=== PATIENT | male | born 1980 | race Caucasian/White ===

== ENCOUNTER 2020-02-18 08:01 | Inpatient (IN) | payer BC ==
[2020-02-18] VITALS (22 sets, daily range): BP systolic 103–142; BP diastolic 48–87
[~2020-02-18] VITALS: Ht 175.3 cm; Wt 95.3 kg
[~2020-02-18 08:01] MED LIST: AMLODIPINE BESY10 MG ORAL; CITALOPRAM HBR10 M1 ORAL; CRESTOR10 M2 ORAL; FLOMAX0.4 MG ORAL; LANTUS SOL100 UNIT/1 SUBQ; LOSARTAN-HCTZ1 EACH ORAL; NOVOLOG100 UNIT/4 SQ; benazepril PO
[2020-02-18] MEDS ORDERED: Midazolam 2mg/2ml Inj ONE (08:36)
[2020-02-18] MEDS ORDERED: fentaNYL 100 mcg/2 mL IV ONE (08:36)
[2020-02-18] MEDS ORDERED: Lidocaine 1% MPF 10mg/ml 5ml ONE (08:47)
[2020-02-18] MEDS ORDERED: Rocuronium Bromide 50mg/5ml Inj IV ONE (08:57)
[2020-02-18] MEDS ORDERED: Succinylcholine 20mg/ml 10ml vial ONE (08:57)
[2020-02-18] MEDS ORDERED: Lidocaine 1% 10mg/ml/Epi 0.005mg/ml 30ml vial INJ ONE (09:18)
[2020-02-18] MEDS ORDERED: Bacitracin 50000 Units Vial ONE (09:19)
[2020-02-18] MEDS ORDERED: NeoSporin Gu Irrig 1ml Amp IRRIG ONE (09:19)
[2020-02-18] MEDS ORDERED: Neostigmine 1mg/ml 10ml Inj ONE (10:00)
[2020-02-18] MEDS ORDERED: NS Irrig 1000ml ONE (10:00)
[2020-02-18] MEDS ORDERED: LR 1000ml ONE (10:00)
[2020-02-18] MEDS ORDERED: Sterile Water Irrig 1000ml IRRIG ONE (10:00)
--- NOTE | 2020-02-18 10:08 | Pre-Procedure Note/Attestation ---
Pre-Procedure Note/Attestation Complete Prior to Procedure Planned Procedure: bilateral Procedure Narrative: Bilateral groin and thigh excision and flap elevation Attestation I attest that I discussed the nature of the procedure; its benefits; risks and complications; and alternatives (and the risks and benefits of such alternatives ), prior to the procedure, with the patient (or the patient's legal passenger representative). I attest that, if there was a reasonable possibility of needing a blood transfusion, the patient (or the patient's legal passenger representative) was given the [facility] standardized written summary, pursuant to the [place] Blood Safety Act ([place] Health and Safety Code # 1645, as amended). I attest that I re-evaluated the patient just prior to the surgery and that there has been no change in the patient's H&P, except as documented below: Ant Rico MD Feb 18, 2020 10:08
[2020-02-18] MEDS ORDERED: Surgicel 4in x 8in TOPIC ONE (10:09)
[2020-02-18] MEDS ORDERED: PCA Education Pamphlet MISC ONE (10:15)
[2020-02-18] MEDS ORDERED: Rate Change PCA 1 Each MISC PRN (10:15)
[2020-02-18] MEDS ORDERED: PCA HYDROmorphone 1mg/ml 30 ML IV PRN (10:15)
[2020-02-18] MEDS ORDERED: DiphenhydrAMINE 50mg/ml Inj IVP PRN (10:15)
[2020-02-18] MEDS ORDERED: Morphine Sulfate 10mg/ml Inj ONE (10:34)
[2020-02-18] MEDS ORDERED: Sodium Chloride 10ml vial INJ ONE (10:35)
[2020-02-18] MEDS ORDERED: LR 1000ml 1,000 ML IVLG SCH (10:43)
--- NOTE | 2020-02-18 10:43 | Anethesia Preoperative Eval ---
Anesthesia Pre-op PMH/ROS General Date of Evaluation: Feb 18, 2020 Time of Evaluation: 09:35 Anesthesiologist: Masha ASA Score: ASA 3 Mallampati Score Class I : Soft palate, uvula, fauces, pillars visible Class II: Soft palate, uvula, fauces visible Class III: Soft palate, base of uvula visible Class IV: Only hard plate visible Mallampati Classification: Class II Surgeon: Trisha Diagnosis: Recurrend HS Surgical Procedure: Excision of groin HS Anesthesia History: none Family History: no anesthesia problems Allergies: Coded Allergies: No Known Allergies (Unverified , 02/15/20) Medications: see eMAR Patient NPO?: Yes Past Medical History Cardiovascular: Reports: HTN - stable; Denies: CAD, MD, valve dz, arrhythmia, other Pulmonary: Denies: asthma, COPD, MATTHEW, other Gastrointestinal/Genitourinary: Reports: GERD; Denies: CRI, ESRD, other Neurologic/Psychiatric: Denies: dementia, CVA, depression/anxiety, TIA, other Endocrine: Reports: DM - Type 1 well controlled; Denies: hypothyroidism, steroids, other HEENT: Denies: cataract (L), cataract (R), glaucoma, MASHPEE (L), MASHPEE (R), other Hematology/Immune: Denies: anemia, DVT, bleeding disorder, other Musculoskeletal/Integumentary: Reports: other - Recurrent HS; Denies: OA, RA, DJD, DDD, edema Other: other - overweight PMH Narrative: as above PSxH Narrative: T&A ankle Sx Anesthesia Pre-op Phys. Exam Physician Exam Last Vital Signs Date Time Temp Pulse Resp B/P (MAP) Pulse Ox O2 Delivery O2 Flow Rate FiO2 02/18/20 09:35 Room Air 02/18/20 09:31 97.5 74 18 142/87 100 Constitutional: NAD Neurologic: CN 2-12 intact Cardiovascular: RRR, no M/R/G Respiratory: CTA Gastrointestinal: S/NT/ND Airway Exam Mallampati Score: Class II MO: full Neck: flexible ROM: full Teeth: intact Dentures: no upper, no lower Anesthesia Pre-op A/P Labs Chemistry Test 02/18/20 09:40 POC Whole Blood Glucose 127 MG/DL (74-106) H Studies Pre-op Studies: EKG - NSR Risk Assessment & Plan Assessment: ASA 3 Plan: GA with ETT Status Change Before Surgery: No Pre-Antibiotics Drug: Ancef 2gr Given Within 1 Hr of Incision: Yes Time Given: 10:28 Fan Flanagan MD Feb 18, 2020 10:43
[2020-02-18] MEDS ORDERED: Meperidine 25mg/0.5ml Inj (FOR RIGORS ONLY) IV PRN (10:45)
[2020-02-18] MEDS ORDERED: Ketorolac 30mg Inj IV PRN (10:45)
[2020-02-18] MEDS ORDERED: Metoclopramide 10mg/2ml Inj IVP PRN (10:45)
[2020-02-18] MEDS ORDERED: Hydromorphone 0.5mg/0.5ml inj IVP PRN (10:45)
[2020-02-18] MEDS ORDERED: Acetaminophen (Non formulary) 100 ML IV ONE (10:45)
[2020-02-18] MEDS ORDERED: Glycopyrrolate 0.2mg/ml 1ml Vial ONE (10:47)
--- NOTE | 2020-02-18 11:55 | Operative Note - PDOC ---
Operative Note Operative Note Procedure: Excision of bilateral groin and thigh hidradenitis with flap elevation and closure of wounds, except for left scrotal wound Post-op Diagnosis: same as pre-op Surgeon: Trisha Inspector And Sorter: Job Specimen: yes Complications: none Condition: stable Estimated Blood Loss: minimal Drains: damir Implant(s) used?: No Ant Rico MD Feb 18, 2020 11:55
--- NOTE | 2020-02-18 12:06 | Immediate Post-Op Evaluation ---
Immediate Post-Op Evalulation Immediate Post-Op Evalulation Procedure: Excision and partial closure of bilateral groin hydradenitis Date of Evaluation: Feb 18, 2020 Time of Evaluation: 12:04 IV Fluids: 1000 Blood Products: none Estimated Blood Loss: 50 Urinary Output: 250 Blood Pressure Systolic: 118 Blood Pressure Diastolic: 62 Pulse Rate: 63 Respiratory Rate: 20 O2 Sat by Pulse Oximetry: 99 Temperature (Fahrenheit): 98.1 Pain Score (1-10): 2 Nausea: No Vomiting: No Complications none Patient Status: reacts, patent, extubated, none Hydration Status: adequate Fan Flanagan MD Feb 18, 2020 12:05
[2020-02-18] MEDS ORDERED: DiphenhydrAMINE 50mg/ml Inj IVP SCH (12:15)
--- NOTE | 2020-02-18 15:30 | Operative Note - Dictated ---
DATE OF OPERATION: 02/18/2020 PREOPERATIVE DIAGNOSIS: Bilateral groin and bilateral upper thigh hidradenitis suppurativa. POSTOPERATIVE DIAGNOSIS: Bilateral groin and bilateral upper thigh hidradenitis suppurativa. PROCEDURES: 1. Excision of left upper thigh hidradenitis suppurativa with wound closure. 2. Excision of right upper thigh hidradenitis suppurativa with wound closure. 3. Excision of right scrotal hidradenitis suppurativa with wound closure. 4. Extended excision of left scrotal and upper thigh hidradenitis stage III resulting in a defect of 10 x 15 cm. 5. Elevation of a scrotal fasciocutaneous flap for staged closure of left scrotal wound that measured 10 x 15 cm. SURGEON: Ant Rico MD. SPECIAL EDUCATION RESOURCE ROOM TEACHER: Toribio Kaiser MD. ANESTHESIA: General. COMPLICATIONS: None. DRAINS: Included a Ovando. SPECIMEN: Included a total of four different specimen containing hidradenitis. DISPOSITION: Stable to the recovery room. INDICATIONS FOR SURGERY: This is a 39-year-old male with a history of diabetes mellitus, with a long-standing history of hidradenitis suppurativa, who has sought and failed medical management in his local home town near [place]. He had presented to me in evaluation several months ago. I noted the extent of his disease and that he needed to have surgical excision and reconstruction of his affected areas. He had multiple areas of disease in the groin and thigh region, the most significant of which was stage III at the junction of the upper thigh and the scrotum on the left side. We discussed the plan for excision and reconstruction. He understood and agreed to proceed. He also understood the risks and benefits of surgery and agreed to proceed. DETAILS OF THE OPERATION: The patient was brought to the operating room and after induction of anesthesia, was placed in the lithotomy position on the operating room table. Once he was fully prepped and draped, a total of 10 mL of lidocaine with epinephrine was injected into the various sites containing the hidradenitis. We first began on the left upper thigh region where there was a 2 x 1 cm focus of HS, which was excised in an elliptical fashion using a #15 blade and was amenable to primary closure. Following the excision of the diseased, wound was irrigated with pulse lavage. It was closed primarily using 2-0 Vicryl and interrupted 3-0 Prolene suture. We then turned our attention to the contralateral right-sided disease. First on the right upper thigh, there was an area that measured approximately 5 x 2 cm in dimension. This was excised in elliptical fashion as was done on the other side. A #15 blade was used to make the skin incision. Dissection was carried down to the fascia and the specimen was removed en bloc. This required some mobilization of skin flaps on either side of the wound to allow for tension-free closure. Once the flaps were elevated, the wound was reapproximating using 2-0 and 3-0 Vicryl sutures and the skin was closed with a running 3-0 Prolene suture that was reinforced with interrupted 3-0 Prolene. Next, we turned our attention to the right scrotal disease. This is an area that measured approximately 4 x 2 cm. Again, a similar ellipse was designed around the area of disease. A #15 blade was then used to make the skin incision and dissection was carried down to the level of the scrotal fascia, and this also required some elevation of the skin flaps on either side to allow for tension-free closure. This was done using skin hooks and electrocautery and the wound was then closed with 2-0 Vicryl sutures in a running 3-0 Prolene suture that was reinforced with interrupted 3-0 Prolene sutures. We then turned our attention to the large area of disease involving the left groin. This was an L-shaped type of distribution of the disease that extended from the upper groin all way down to the scrotal base and in the perianal region. A marking pen was then used to reinforce our previous markings and a #15 blade was then used to make the skin incision to excise this piece en bloc. Toward the base of the scrotum, there was significant adherence of the disease to the scrotal fascia and in the area of the perianal region as well. Upon careful dissection, we were able to tease off the disease from the tunica albuginea, and we noted that we were able to successfully remove all this; however, there was some evidence of disease that measured approximately 1 x 1 cm just adjacent to the perianal region and by the anus, which I felt it was appropriate to leave behind because of the fear of possibly causing any disturbance of the sphincter function to the anus in that region. Therefore that particular area of disease was left behind. A Estev[place] drain, however, was placed through it to allow for any drainage. The eventual plan maybe once this scrotal wound is completely healed, we may have to come back for a small local procedure to remove that specific focus, which was adjacent to the anus. However, given at this operation, I did not feel that it would be safe to proceed with removing the disease and given the small disease burden I felt that it was okay to come back and address at a later dates. However, the bulk of the disease and the upper scrotum and upper thigh region was stage III was excised and once this was done the defect that resulted was 10 x 15 cm and this was not clearly amenable to primary closure. As such, we had to elevate a scrotal fasciocutaneous flap which was elevated off of the tunica albuginea. Skin hooks were used to elevate the skin flap above the tunica albuginea and this fasciocutaneous flap was elevated based off of branches of the pudendal artery perforators. We also required some elevation of the medial thigh flap tissues to allow for tension-free reapproximation of the closure of the skin flaps. We tentatively did close the wound and there was noted to be no tension upon the closure. Given, however, the extent of the disease and at being stage III and evidence of pus which we did encounter, we felt that it was appropriate to leave this wound open for 48 hours, have the patient be on IV antibiotics, and perform local wound care and perform definitive adjacent tissue transfer with flap elevation within 48 hours. The wound was then packed with some Surgicel and wet-to-dry gauze, and bulky dressings were applied. Also, a Castaneda that had been placed at the beginning of the case to allow for better wound management so that the patient would not soil the dressings postoperatively. Ant Rico M.D. DR: REBEKAH JOB#: [id number] CC:
--- NOTE | 2020-02-18 15:50 | NUR ---
NURSE NOTES: Received report from Ramon DYE. pt a/a/o x4 laying in bed with no signs of distress or other issues at this time. Castaneda cath in place draining well. surgical incision c/d/i. IV on the right ?OLGUIN gauge#20 running TRADE CLERK dilaudid and IVF. RN will review orders and will carry on as indicated. I will f/u as needed.
--- NOTE | 2020-02-18 16:38 | History and Physical ---
History of Present Illness General Date patient seen: Feb 18, 2020 Time patient seen: 17:28 Reason for Hospitalization: Post surgical hypoxia, wound drainage Present Illness HPI 39 year old gentleman with a PMH of DM type 1, HTN and Hydradenitis of the inguinal area present after surgery with Dr. Rico. Procedure performed was Excision of bilateral groin and thigh hidradenitis with flap elevation and closure of wounds, except for left scrotal wound. There was minimal blood loss during the surgery. Patient currently has a [place] drain and has persistent sanguinous drainage from the wound site. After the surgery patient remained hypoxic and is now on supplemental oxygen nasal cannula. Has some through pain surgical site but has not used the OUTDOOR STUDIES DIRECTOR pump yet. Currently patient is AAO x3, no chest pain, no cough, no shortness of breath, leg pain, abdominal pain or diarrhea. He only complains of some pain on his lips intubation may have been traumatic. Allergies: Coded Allergies: No Known Allergies (Unverified , 02/15/20) COVID-19 Screening Contact w/high risk pt: No Experienced COVID-19 symptoms?: No Medication History Scheduled Amlodipine Besylate* (Amlodipine Besylate*), 10 MG ORAL DAILY, (Reported) Benazepril Hcl* (Benazepril Hcl*), 40 MG ORAL DAILY, (Reported) Citalopram Hydrobromide* (Citalopram Hbr*), 10 MG ORAL DAILY, (Reported) Insulin Aspart (Novolog), 0 SQ AC, (Reported) Insulin Glargine (Lantus), 36 SUBQ BEDTIME, (Reported) Patient History History Provided By: Patient Healthcare decision maker Resuscitation status Advanced Directive on File Past Medical/Surgical History Past Medical/Surgical History: (1) HTN (hypertension) (2) DM type 1 (diabetes mellitus, type 1) (3) Hidradenitis suppurativa Family History Family History: FH: diabetes mellitus Social History Social History: (1) Current smoker Review of Systems Constitutional: Reports: no symptoms Eye: Reports: no symptoms ENT: Reports: see HPI, mouth pain Respiratory: Reports: shortness of breath Cardiovascular: Reports: no symptoms Gastrointestinal: Reports: no symptoms Genitourinary: Reports: no symptoms Skin: Reports: other - surgical wounds draining Neurological: Reports: no symptoms Endocrine: Reports: no symptoms Hematologic/Lymphatic: Reports: no symptoms Physical Exam General Appearance: no apparent distress, alert, lethargic, alert oriented x3 Lines, tubes and drains: peripheral, other - damir HEENT: normocephalic, atraumatic, PERRL, other - swollen lip Neck: non-tender, normal alignment, supple Respiratory/Chest: chest wall non-tender, lungs clear, no accessory muscle use , respiratory distress, decreased breath sounds Cardiovascular/Chest: normal peripheral pulses, normal rate, regularly irregular, no gallop/murmur, no JVD Abdomen: normal bowel sounds, non tender, soft, no organomegaly, no mass Skin Exam: other - wound drainage Neurologic: care taker II-XII grossly normal, no motor/sensory deficits, alert, oriented x 3, responsive Last 24 Hour Vital Signs Date Time Temp Pulse Resp B/P (MAP) Pulse Ox O2 Delivery O2 Flow Rate FiO2 02/18/20 15:50 98 Room Air 2.0 28 02/18/20 14:40 18 02/18/20 14:40 97.9 02/18/20 14:30 97.9 72 23 106/52 99 Nasal Cannula 3 02/18/20 14:25 15 02/18/20 14:15 58 15 112/50 99 Nasal Cannula 3 02/18/20 14:10 18 02/18/20 14:00 97.9 02/18/20 14:00 63 16 108/48 98 Nasal Cannula 3 02/18/20 13:45 80 15 103/58 98 Nasal Cannula 3 02/18/20 13:30 62 13 111/54 98 Nasal Cannula 3 02/18/20 13:15 78 21 115/56 99 Nasal Cannula 3 02/18/20 13:00 58 13 110/54 100 Nasal Cannula 3 02/18/20 12:49 56 14 111/65 100 Nasal Cannula 3 02/18/20 12:34 57 15 111/56 100 Simple Mask 6 02/18/20 12:30 69 18 114/61 100 Simple Mask 6 02/18/20 12:20 53 12 114/62 100 Simple Mask 6 02/18/20 12:10 58 14 111/63 100 Simple Mask 6 02/18/20 12:05 75 15 117/52 100 Simple Mask 6 02/18/20 12:05 63 20 99 02/18/20 12:00 60 21 118/62 100 Simple Mask 6 02/18/20 11:55 97.5 74 18 142/87 100 Room Air 02/18/20 09:35 Room Air 02/18/20 09:31 97.5 74 18 142/87 100 Room Air Laboratory Tests Test 02/18/20 09:40 POC Whole Blood Glucose 127 MG/DL (74-106) H Microbiology Date/Time Source Procedure Growth Status 02/18/20 08:24 Nasopharynx SARS-CoV-2 RdRp Gene Assay - Final Complete Height (Feet): 5 Height (Inches): 9.00 Weight (Pounds): 210 Medications Current Medications Medications (Trade) Dose Ordered Sig/Marybeth Route PRN Reason Start Time Stop Time Status Last Admin Dose Admin Acetaminophen (Tylenol) 650 mg Q4H PRN ORAL FEVER 02/18/20 10:15 03/19/20 10:14 Diphenhydramine HCl (Benadryl) 12.5 mg Q6H PRN IVP Itching/Pruritis 02/18/20 10:15 03/19/20 10:14 Heparin Sodium (Porcine) (Heparin 5000 units/ml) 5,000 units EVERY 12 HOURS SUBQ 02/18/20 21:00 04/03/20 20:59 Hydromorphone HCl 30 ml @ 0 mls/hr Q24H PRN IV For Pain 02/18/20 10:15 02/20/20 10:14 02/18/20 14:10 Miscellaneous Medication (OUTDOOR STUDIES DIRECTOR Rate Change) 1 ea DAILY PRN MISC rate change 02/18/20 10:15 02/20/20 10:14 Miscellaneous Medication (OUTDOOR STUDIES DIRECTOR shift volume) 1 ea Q12HR@0700,1900 MISC 02/18/20 19:00 02/20/20 18:59 Ondansetron HCl (Zofran) 4 mg Q6H PRN IVP Nausea & Vomiting 02/18/20 10:15 03/19/20 10:14 Temazepam (RestoriL) 7.5 mg DAILYPRN PRN ORAL Insomnia 02/18/20 10:15 02/25/20 10:14 Assessment/Plan Problem List: (1) Postoperative hypoxia ICD Codes: R09.02 - Hypoxemia; Z98.890 - Other specified postprocedural states SNOMED: 260578983, 455011047 (2) Wound drainage ICD Codes: T14.8XXA - Other injury of unspecified body region, initial encounter SNOMED: 65000320, 940871251 (3) Hidradenitis suppurativa ICD Codes: L73.2 - Hidradenitis suppurativa SNOMED: 48764154 (4) DM type 1 (diabetes mellitus, type 1) ICD Codes: E10.9 - Type 1 diabetes mellitus without complications SNOMED: 91488636 (5) HTN (hypertension) ICD Codes: I10 - Essential (primary) hypertension SNOMED: 83679384 Status: stable Assessment/Plan: 39 year old gentleman with a PMH of DM type 1, HTN and Hydradenitis of the inguinal area present after surgery with Dr. Rico. #Hydradenitis of inguinal region s/p surgical intervention 02/17 #Post op Hypoxia #Wound Drainage #Postop pain -Patient level of care -Ancef antibiotics for hidradenitis status post surgical intervention -Supplemental oxygen to keep saturations above 92% -Castaneda care and maintenance -CBC, CMP -Pain control with OUTDOOR STUDIES DIRECTOR pump -Bowel regimen -Heparin subcu 5000 units every 12 hours -Appreciate recommendations from surgeon #Type 1 diabetes -Resistant dose insulin sliding scale -Levemir 36 units at bedtime -Carb consistent diet -Hemoglobin A1c #Hypertension -Continue home hypertensives I spent 75 minutes on this admission with 50% of the time [id number] with the patient. Discussed with surgeon, RN and pharmacy. I spent 11 minutes counseling on smoking cessation. Benja Franco M.D. Feb 18, 2020 16:38
[2020-02-18] MEDS ORDERED: BENAZEPRIL HCL40 MG ORAL (17:08)
[2020-02-18] MEDS ORDERED: Milk of Magnesia 30ml Ud ORAL PRN (17:23)
[2020-02-18] MEDS: NovoLOG Insulin Flexpen SUBQ SCH ×2 (17:36→21:00)
[2020-02-18 17:52] LABS: EOSINOPHILS % (AUTO) 2.5 % (0.0-3.0); HEMATOCRIT 43.1 % (42.0-52.0); HEMOGLOBIN 14.5 G/DL (14.2-18.0); LYMPHOCYTES % (AUTO) 22.8 % (20.0-45.0); MEAN CORPUSCULAR VOLUME 97 FL (80-99); NEUTROPHILS % (AUTO) 64.7 % (45.0-75.0); PLATELET COUNT 207 K/UL (150-450); RED BLOOD COUNT 4.43 M/UL (4.70-6.10); RED CELL DISTRIBUTION WIDTH 12.6 % (11.6-14.8); WHITE BLOOD COUNT 12.5 K/UL (4.8-10.8)
[2020-02-18 18:03] LABS: ALANINE AMINOTRANSFERASE 27 U/L (12-78); ALBUMIN 3.1 G/DL (3.4-5.0); ALBUMIN/GLOBULIN RATIO 0.9 (1.0-2.7); ALKALINE PHOSPHATASE 55 U/L (46-116); ANION GAP 6 mmol/L (5-15); ASPARTATE AMINO TRANSFERASE 29 U/L (15-37); BILIRUBIN,TOTAL 0.8 MG/DL (0.2-1.0); BLOOD UREA NITROGEN 10 mg/dL (7-18); CALCIUM 8.8 MG/DL (8.5-10.1); CARBON DIOXIDE 29 MMOL/L (21-32); CHLORIDE 103 MMOL/L (98-107); CREATININE 0.9 MG/DL (0.55-1.30); POTASSIUM 4.4 MMOL/L (3.5-5.1); SODIUM 138 MMOL/L (136-145)
--- NOTE | 2020-02-18 18:41 | NUR ---
NURSE NOTES: Patient had episode of hypoglycemia. Blood sugar 42, rechecked blood sugar immediately, blood sugar 45. Patient encouraged to eat dinner and provided with orange juice. Patient was asymptomatic, alert and oriented, denied headache or shakiness. Patient tolerated PO intake and orange juice well, rechecked blood sugar and blood sugar was 69, patient provided with another orange juice and patient drank and tolerated well. Dr. Franco was notified (see critical value MD notification), blood sugar rechecked and is now 134. Patient remains asymptomatic and stable.
[2020-02-18] MEDS: PCA shift volume MISC SCH (19:23)
--- NOTE | 2020-02-18 19:25 | NUR ---
NURSE NOTES: RECEIVED PATIENT FROM HARDIK ESTES. PATIENT IS AWAKE, AAOX4, ON NC 3L, NO ACUTE DISTRESS NOTED. I/S AT BEDSIDE, ENCOURAGED USAGE. PIV INTACT AND PATENT. ALDRIDGE IS IN PLACE DRAINING WELL, ALDRIDGE ANCHOR PRESENT. SURGICAL DRESSINGS IN BILATERAL GROINS, INTACT AND DRY. PATIENT IS ON A WARD ASSISTANT, BOLUS DOSE AT 0.2MG Q6MINS. VSS. BED IS LOCKED AND LOW, BED ALARMS ACTIVE, SIDE RAILS UP X2 AND CALL LIGHT IS WITHIN REACH. WILL CONTINUE TO MONITOR.
--- NOTE | 2020-02-18 19:46 | NUR ---
HAND-OFF: Report given to Diana RN, pt in stable condition.
[2020-02-18] MEDS ORDERED: Levemir Flexpen SUBQ SCH (21:00)
[2020-02-18] MEDS ORDERED: Heparin 5000 units/ml inj SUBQ SCH (21:00)
[2020-02-18] MEDS: Heparin 5000 units/ml inj SUBQ SCH (21:35)
[2020-02-18] MEDS: ceFAZolin sod 1 GM in D5W 55 ML IVPB SCH (21:36)
[2020-02-19] VITALS: BP 111/61
[2020-02-19 04:00] VITALS: BP 116/69
[2020-02-19] MEDS: ceFAZolin sod 1 GM in D5W 55 ML IVPB SCH ×3 (05:01→21:20)
[2020-02-19] MEDS: DiphenhydrAMINE 50mg/ml Inj IVP PRN ×2 (05:02→18:37)
[2020-02-19 05:30] LABS: BASOPHILS % (AUTO) 1.1 % (0.0-2.0); EOSINOPHILS % (AUTO) 2.5 % (0.0-3.0); HEMATOCRIT 44.4 % (42.0-52.0); HEMOGLOBIN 14.6 G/DL (14.2-18.0); MEAN CORPUSCULAR VOLUME 99 FL (80-99); MONOCYTES % (AUTO) 9.5 % (1.0-10.0); NEUTROPHILS % (AUTO) 63.8 % (45.0-75.0); PLATELET COUNT 225 K/UL (150-450); RED CELL DISTRIBUTION WIDTH 12.1 % (11.6-14.8); WHITE BLOOD COUNT 11.4 K/UL (4.8-10.8)
[2020-02-19 05:56] LABS: ALANINE AMINOTRANSFERASE 30 U/L (12-78); ALBUMIN/GLOBULIN RATIO 0.8 (1.0-2.7); ALKALINE PHOSPHATASE 56 U/L (46-116); ANION GAP 6 mmol/L (5-15); ASPARTATE AMINO TRANSFERASE 27 U/L (15-37); BILIRUBIN,TOTAL 0.6 MG/DL (0.2-1.0); BLOOD UREA NITROGEN 10 mg/dL (7-18); CALCIUM 8.6 MG/DL (8.5-10.1); CARBON DIOXIDE 29 MMOL/L (21-32); CHLORIDE 103 MMOL/L (98-107); POTASSIUM 3.9 MMOL/L (3.5-5.1); SODIUM 138 MMOL/L (136-145)
--- NOTE | 2020-02-19 06:06 | NUR ---
NURSE NOTES: COLLECTED PATIENT'S HOME MEDICATIONS, WILL SEND DOWN TO PHARMACY. RECEIPT #: [id number]
--- NOTE | 2020-02-19 06:29 | NUR ---
NURSE NOTES: PATIENT MORNING BLOOD SUGAR WAS 31. PROVIDED PATIENT WITH APPLE JUICE. INITIAL RECHECK BLOOD SUGAR WAS 70, THEN 125 FOR THE SECOND RECHECK. PATIENT WAS ASYMPTOMATIC, AAOX4, STABLE. CALLED AND LEFT MESSAGE TO DR. NICKERSON. WILL CONTINUE TO MONITOR CLOSELY.
[2020-02-19] MEDS: NovoLOG Insulin Flexpen SUBQ SCH ×4 (06:30→21:12)
--- NOTE | 2020-02-19 07:20 | NUR ---
NURSE NOTES: WALKING ROUNDS DONE WITH NIGHT RN. PATIENT AWAKE IN BED HAVING BREAKFAST. QUESTIONS ANSWERED, NEEDS MET. SURGICAL SITE ASSESSED; REMAINS C/D/I. ALDRIDGE CATHETER PATENT AND SECURED AND DRAINING VIA GRAVITY.DENIES PAIN. VERIFIED DILAUDID [employer] MAT[employer] INSPECTOR SETTINGS AGAINST MD ORDER. BED IN LOW AND LOCKED POSITION.
[2020-02-19] MEDS: PCA shift volume MISC SCH ×2 (07:29→19:19)
--- NOTE | 2020-02-19 07:36 | NUR ---
HAND-OFF: Report given to HARDIK Gar. Endorsed POC.
[2020-02-19 08:00] VITALS: BP 117/70
--- NOTE | 2020-02-19 08:15 | General Progress Note ---
Progress Note Progress Note Pt seen and examined. POD# 1. Doing well. Pain well controlled. To OR tomorrow for closure of left scrotal wound that was left open due to purulent tissue present at the time of excision. NPO after MN and consent. MD Trisha Wilder Amir MD Feb 19, 2020 08:14
--- NOTE | 2020-02-19 08:27 | NUR ---
NURSE NOTES: Spoke to regarding admitting MD and change admitting MD to Gilberto Pearce. Order noted and carried out.
--- NOTE | 2020-02-19 08:39 | 48 Hour Post Anesthesia Eval ---
Post Anesthesia Evaluation Procedure: Excision and partial closure of bilateral groin hydradenitis Date of Evaluation: Feb 19, 2020 Time of Evaluation: 08:38 Blood Pressure Systolic: 117 0: 70 Pulse Rate: 67 Respiratory Rate: 18 Temperature (Fahrenheit): 98.7 O2 Sat by Pulse Oximetry: 95 Airway: patent Nausea: No Vomiting: No Pain Intensity: 3 Hydration Status: adequate Cardiopulmonary Status: Stable Mental Status/LOC: patient returned to baseline Follow-up Care/Observations: 0 Post-Anesthesia Complications: 0 Follow-up care needed: N/A Rolando Zhang MD Feb 19, 2020 08:39
--- NOTE | 2020-02-19 09:15 | NUR ---
NURSE NOTES: Seen and evaluated by and requested BS checking x1 now and BS 187. Will continue to monitor.
[2020-02-19] MEDS: Heparin 5000 units/ml inj SUBQ SCH ×2 (09:33→21:00)
--- NOTE | 2020-02-19 10:08 | General Progress Note ---
Assessment/Plan Problem List: (1) Postoperative hypoxia ICD Codes: R09.02 - Hypoxemia; Z98.890 - Other specified postprocedural states SNOMED: 000560794, 636944131 (2) Wound drainage ICD Codes: T14.8XXA - Other injury of unspecified body region, initial encounter SNOMED: 69309452, 310830062 (3) Hidradenitis suppurativa ICD Codes: L73.2 - Hidradenitis suppurativa SNOMED: 87476993 (4) DM type 1 (diabetes mellitus, type 1) ICD Codes: E10.9 - Type 1 diabetes mellitus without complications SNOMED: 82621830 (5) HTN (hypertension) ICD Codes: I10 - Essential (primary) hypertension SNOMED: 73475188 Status: stable Assessment/Plan: 39 year old gentleman with a PMH of DM type 1, HTN and Hydradenitis of the inguinal area present after surgery with Dr. Rico. #Hydradenitis of inguinal region s/p surgical intervention 02/17 #Post op Hypoxia -improving #Wound Drainage #Postop pain -inpatient level of care -Ancef antibiotics for hidradenitis status post surgical intervention -Supplemental oxygen to keep saturations above 92% -Castaneda care and maintenance -CBC, CMP reviewd -Pain control with HISTOLOGIST TECHNOLOGIST pump -Bowel regimen -Heparin subcu 5000 units every 12 hours -Appreciate recommendations from surgeon #Type 1 diabetes #Hypoglycemia - resolved -Resistant dose insulin sliding scale -Levemir 36 units at bedtime -Carb consistent diet -Hemoglobin A1c #Hypertension -Continue home hypertensives #Hypomagnesemia -replaced magnesium I spent 36 minutes on this admission with 50% of the time [id number] with the patient. Discussed with surgeon, RN and pharmacy. Subjective Date patient seen: Feb 19, 2020 Time patient seen: 10:04 Constitutional: Reports: no symptoms HEENT: Reports: no symptoms Cardiovascular: Reports: no symptoms Respiratory: Reports: no symptoms Gastrointestinal/Abdominal: Reports: no symptoms Genitourinary: Reports: no symptoms Neurologic/Psychiatric: Reports: no symptoms Endocrine: Reports: no symptoms Hematologic/Lymphatic: Reports: no symptoms Allergies: Coded Allergies: No Known Allergies (Unverified , 02/15/20) Subjective Patient feels good. No pain. Objective Last 24 Hour Vital Signs Date Time Temp Pulse Resp B/P (MAP) Pulse Ox O2 Delivery O2 Flow Rate FiO2 02/19/20 08:39 67 18 95 02/19/20 08:00 67 18 95 02/19/20 08:00 98.7 67 18 117/70 (86) 95 02/19/20 07:28 98 Nasal Cannula 2.0 28 02/19/20 04:00 99.2 73 16 116/69 (85) 96 02/19/20 04:00 73 16 96 02/19/20 00:00 98.6 69 14 111/61 (78) 98 02/19/20 00:00 69 14 98 02/18/20 21:00 58 15 98 02/18/20 21:00 Nasal Cannula 3.0 02/18/20 20:00 97.7 58 15 108/62 (77) 98 02/18/20 19:20 98 Nasal Cannula 2.0 28 02/18/20 17:34 Nasal Cannula 3.0 02/18/20 15:50 98 Nasal Cannula 2.0 28 02/18/20 14:40 18 02/18/20 14:40 97.9 02/18/20 14:30 97.9 72 23 106/52 99 Nasal Cannula 3 02/18/20 14:25 15 02/18/20 14:15 58 15 112/50 99 Nasal Cannula 3 02/18/20 14:10 18 02/18/20 14:00 97.9 02/18/20 14:00 63 16 108/48 98 Nasal Cannula 3 02/18/20 13:45 80 15 103/58 98 Nasal Cannula 3 02/18/20 13:30 62 13 111/54 98 Nasal Cannula 3 02/18/20 13:15 78 21 115/56 99 Nasal Cannula 3 02/18/20 13:00 58 13 110/54 100 Nasal Cannula 3 02/18/20 12:49 56 14 111/65 100 Nasal Cannula 3 02/18/20 12:34 57 15 111/56 100 Simple Mask 6 02/18/20 12:30 69 18 114/61 100 Simple Mask 6 02/18/20 12:20 53 12 114/62 100 Simple Mask 6 02/18/20 12:10 58 14 111/63 100 Simple Mask 6 02/18/20 12:05 75 15 117/52 100 Simple Mask 6 02/18/20 12:05 63 20 99 02/18/20 12:00 60 21 118/62 100 Simple Mask 6 02/18/20 11:55 97.5 74 18 142/87 100 Room Air Intake and Output 02/18/20 02/19/20 19:00 07:00 Intake Total 1500 ml 220 ml Output Total 450 ml Balance 1050 ml 220 ml Intake IV Total 1500 ml 220 ml Output Urine Total 400 ml Estimated Blood Loss 50 ml # Voids 1 Laboratory Tests 02/18/20 17:30: White Blood Count 12.5H, Red Blood Count 4.43L, Hemoglobin 14.5, Hematocrit 43.1 , Mean Corpuscular Volume 97, Mean Corpuscular Hemoglobin 32.7H, Mean Corpuscular Hemoglobin Concent 33.6, Red Cell Distribution Width 12.6, Platelet Count 207, Mean Platelet Volume 8.7, Neutrophils (%) (Auto) 64.7, Lymphocytes (% ) (Auto) 22.8, Monocytes (%) (Auto) 9.0, Eosinophils (%) (Auto) 2.5, Basophils ( %) (Auto) 1.0, Sodium Level 138, Potassium Level 4.4, Chloride Level 103, Carbon Dioxide Level 29, Anion Gap 6, Blood Urea Nitrogen 10, Creatinine 0.9, Estimat Glomerular Filtration Rate > 60, Glucose Level 45L, Calcium Level 8.8, Total Bilirubin 0.8, Aspartate Amino Transf (AST/SGOT) 29, Alanine Aminotransferase (ALT/SGPT) 27, Alkaline Phosphatase 55, Total Protein 6.5, Albumin 3.1L, Globulin 3.4, Albumin/Globulin Ratio 0.9L 02/18/20 17:56: POC Whole Blood Glucose 42L 02/18/20 17:58: POC Whole Blood Glucose [Pending] 02/18/20 18:18: POC Whole Blood Glucose [Pending] 02/18/20 18:38: POC Whole Blood Glucose 134H 02/18/20 20:58: POC Whole Blood Glucose 134H 02/19/20 04:40: White Blood Count 11.4H, Red Blood Count 4.50L, Hemoglobin 14.6, Hematocrit 44.4 , Mean Corpuscular Volume 99, Mean Corpuscular Hemoglobin 32.4H, Mean Corpuscular Hemoglobin Concent 32.8, Red Cell Distribution Width 12.1, Platelet Count 225, Mean Platelet Volume 8.0, Neutrophils (%) (Auto) 63.8, Lymphocytes (% ) (Auto) 23.0, Monocytes (%) (Auto) 9.5, Eosinophils (%) (Auto) 2.5, Basophils ( %) (Auto) 1.1, Sodium Level 138, Potassium Level 3.9, Chloride Level 103, Carbon Dioxide Level 29, Anion Gap 6, Blood Urea Nitrogen 10, Creatinine 1.0, Estimat Glomerular Filtration Rate > 60, Glucose Level 30*L, Hemoglobin A1c 6.1H , Calcium Level 8.6, Magnesium Level 1.7L, Total Bilirubin 0.6, Aspartate Amino Transf (AST/SGOT) 27, Alanine Aminotransferase (ALT/SGPT) 30, Alkaline Phosphatase 56, Total Protein 6.9, Albumin 3.0L, Globulin 3.9, Albumin/Globulin Ratio 0.8L 02/19/20 05:39: POC Whole Blood Glucose 70L 02/19/20 06:20: POC Whole Blood Glucose 125H 02/19/20 09:10: POC Whole Blood Glucose [Pending] Height (Feet): 6 Height (Inches): 1.00 Weight (Pounds): 209 General Appearance: no apparent distress, alert, alert oriented x3 EENT: PERRL/EOMI, normal ENT inspection, TMs normal Neck: non-tender, normal alignment, supple, normal inspection Cardiovascular: normal peripheral pulses, normal rate, regular rhythm, no gallop/murmur, no JVD Respiratory/Chest: chest wall non-tender, lungs clear, normal breath sounds, no respiratory distress, no accessory muscle use Abdomen: non tender, soft, no organomegaly, no mass, hypoactive bowel sounds Genitourinary/Rectal: other - drainage for surgicl wound Edema: no edema noted Arm (L), no edema noted Arm (R), no edema noted Leg (L), no edema noted Leg (R), no edema noted Pedal (L), no edema noted Pedal (R), no edema noted Generalized Neurologic: pump service supervisor II-XII grossly normal, no motor/sensory deficits, alert, oriented x 3, responsive, normal mood/affect Benja Franco M.D. Feb 19, 2020 10:08
[2020-02-19] MEDS ORDERED: Magnesium Oxide 400mg tab ORAL SCH (10:15)
--- NOTE | 2020-02-19 11:11 | NUR ---
NURSE NOTES: PATIENT REMAINS STABLE. AMBULATED PATIENT AROUND NURSING UNIT X1 ASSIST. TOLERATED VERY WELL. GAIT STEADY, DENIES DIZZINESS. CONSENT FOR SURGERY TOMORROW EXPLAINED BY SURGEON AND CONSENT OBTAINED BY RN.
[2020-02-19 12:00] VITALS: BP_SYST 138; BP_DIAS 83; BP_DIAS 87
[2020-02-19 16:00] VITALS: BP 148/82
--- NOTE | 2020-02-19 17:11 | NUR ---
NURSE NOTES: PATIENT REMAINS STABLE. C/O HAVING DIFFICULTY DEFECATING. OFFERED SEVERAL TIMES THROUGHOUT THE SHIFT TO TRY MOM AND/OR DULCOLAX SUPPOSITORY; BUT REFUSED. STATES THEY MAY HAVE AN EXPLOSIVE BM LIKE BEFORE. EXPLAINED WHY ONE OR THE OTHER IS NEEDED DUE TO MACHINE PACKER. PATIENT STATES THEY WILL CONSIDER LATER. PATIENT UOP AND DOWN TO BATHROOM ALL DAY HAVING FALSE ALARMS. A RESULT SOME OF THE SURGICAL BANDAGES TO BILATERAL GROIN FELL OUT. REPLACED WITH 4X4 WITH CLOTH TAPE. TOLERATED WELL. NOTIFIED DR. BRUCE. NO FURTHER ORDERS GIVEN AT THIS TIME. PATIENT INFORMED.
--- NOTE | 2020-02-19 17:36 | NUR ---
CASE MANAGEMENT: REVIEW 39 YEAR OLD MALE DIRECT ADMIT FROM [facility] SI: HIDRADENITIS SUPPURATIVA BILATERAL GROIN AND THIGH EXCISION AND FLAP ELEVATION EXCISION AND PARTIAL CLOSURE OF BILATERAL GROIN HYDRADENITIS T 97.5 HR 74 RR 18 BP 142/87 SAT 100% ROOM AIR WBC 12.5 H/H 14.5/43.1 GLUCOSE 127 IS: VERSED IV X1 FENTANYL IV X1 ACETAMINOPHEN IV X1 PAIN CONTROL WITH CERTIFIED PERSONAL TRAINER PUMP PATIENT ADMITTED TO MED/SURG UNIT 02/18/2020 DCP: PATIENT IS FROM HOME
--- NOTE | 2020-02-19 19:19 | NUR ---
HAND-OFF: Report given to COCO Leiva RN.
--- NOTE | 2020-02-19 19:30 | NUR ---
NURSE NOTES: Received report from HARDIK Gar. Pt A/Ox4 Breathing regular and unlabored. Pt complaining of having a hard time defecating. Offered medication but refused and said he will take stool softeners in the morning. R hand 20g running DISPUTE COORDINATOR as ordered. Bed is low and locked position. Call light within reach. Will continue to monitor.
[2020-02-19 20:00] VITALS: BP 135/70
--- NOTE | 2020-02-19 20:00 | NUR ---
NURSE NOTES: Pt ambulated around nursing unit x1. Tolerated well, and was steady. Dressing is still D/C/I. Castaneda draining to gravity.Bed low and locked position. Call light within reach.
[2020-02-19] MEDS: Levemir Flexpen SUBQ SCH (21:13)
--- NOTE | 2020-02-19 22:15 | NUR ---
NURSE NOTES: Spoke with Dr. Urrutia. Advised to hold heparin due to tomorrow surgery. Also ordered 25 MG Q6 IVP due to patient complaining of a lot of itchiness
[2020-02-20] VITALS (21 sets, daily range): BP systolic 112–139; BP diastolic 68–85
[2020-02-20] MEDS: ceFAZolin sod 1 GM in D5W 55 ML IVPB SCH ×3 (05:02→20:57)
[2020-02-20] MEDS: DiphenhydrAMINE 50mg/ml Inj IVP PRN ×2 (05:02→21:21)
--- NOTE | 2020-02-20 05:51 | NUR ---
NURSE NOTES: Pt experienced hypoglycemia, Blood sugar was 60, rechecked again and was 58. Pt is alert however pt is NPO, gave D50 (1 Syringe). Rechecked in 15 min was 171. MD notified and advised to hold off insulin. NO IVF ordered.
[2020-02-20] MEDS: NovoLOG Insulin Flexpen SUBQ SCH ×4 (06:30→20:58)
[2020-02-20 06:33] LABS: BASOPHILS % (AUTO) 0.9 % (0.0-2.0); EOSINOPHILS % (AUTO) 2.9 % (0.0-3.0); HEMATOCRIT 44.2 % (42.0-52.0); HEMOGLOBIN 14.5 G/DL (14.2-18.0); LYMPHOCYTES % (AUTO) 16.5 % (20.0-45.0); MEAN CORPUSCULAR VOLUME 98 FL (80-99); MONOCYTES % (AUTO) 10.6 % (1.0-10.0); NEUTROPHILS % (AUTO) 69.2 % (45.0-75.0); PLATELET COUNT 190 K/UL (150-450); RED CELL DISTRIBUTION WIDTH 11.8 % (11.6-14.8); WHITE BLOOD COUNT 8.5 K/UL (4.8-10.8)
[2020-02-20 06:49] LABS: ANION GAP 3 mmol/L (5-15); BLOOD UREA NITROGEN 6 mg/dL (7-18); CALCIUM 8.7 MG/DL (8.5-10.1); CARBON DIOXIDE 34 MMOL/L (21-32); CHLORIDE 100 MMOL/L (98-107); POTASSIUM 4.1 MMOL/L (3.5-5.1); SODIUM 137 MMOL/L (136-145)
--- NOTE | 2020-02-20 07:10 | NUR ---
NURSE NOTES: WALKING ROUNDS DONE WITH NIGHT RN. PATIENT ASLEEP BUT AROUSABLE TO NAME. NPO FOR SURGERY TODAY.CHECKED FRAMING MANAGER SETTINGS AGAINST MD ORDER. PATIENT STATES TO HAVE DISCOMFORT. ASSESSED BILATERAL GROIN AREAS; DRSG REINFORCED BY NIGHT RN DUE TO DRAINAGE EXPECTED PER DR. BRUCE. ALDRIDGE CATHETER PATENT AND SECURED TO RIGHT THIGH. DRCITLALLIING W/O DIFFICULTY. BED IN LOW AND LOCKED POSITION WITH BED ALARM ON. PATIENT INSTRUCTED TO CALL FOR ASSISTANCE TO ANF FROM BATHROOM. ACKNOWLEDGED AND RETURN DEMONSTRATION SUCCESSFUL.
[2020-02-20] MEDS: PCA shift volume MISC SCH ×2 (07:12→19:10)
--- NOTE | 2020-02-20 07:18 | NUR ---
HAND-OFF: Report given to HARDIK Gar. Pt is stable.
[2020-02-20] MEDS: Heparin 5000 units/ml inj SUBQ SCH ×2 (09:00→21:00)
[2020-02-20] MEDS ORDERED: Rocuronium Bromide 50mg/5ml Inj IV ONE (09:21)
[2020-02-20] MEDS ORDERED: Lidocaine 1% MPF 10mg/ml 5ml ONE (09:29)
[2020-02-20] MEDS ORDERED: fentaNYL 100 mcg/2 mL IV ONE (09:33)
[2020-02-20] MEDS ORDERED: Midazolam 2mg/2ml Inj ONE (09:33)
[2020-02-20] MEDS ORDERED: Meperidine 25mg/0.5ml Inj (FOR RIGORS ONLY) IV PRN (09:45)
[2020-02-20] MEDS ORDERED: Acetaminophen (Non formulary) 100 ML IV SCH (09:45)
[2020-02-20] MEDS ORDERED: LR 1000ml 1,000 ML IVLG SCH (09:45)
[2020-02-20] MEDS ORDERED: DiphenhydrAMINE 50mg/ml Inj IVP PRN (09:45)
[2020-02-20] MEDS ORDERED: Ketorolac 30mg Inj IV PRN (09:45)
[2020-02-20] MEDS ORDERED: Hydromorphone 0.5mg/0.5ml inj IVP PRN (09:45)
[2020-02-20] MEDS ORDERED: Metoclopramide 10mg/2ml Inj IVP PRN ×2 (09:45→10:30)
--- NOTE | 2020-02-20 09:45 | Anethesia Preoperative Eval ---
Anesthesia Pre-op PMH/ROS General Date of Evaluation: Feb 20, 2020 Time of Evaluation: 09:41 Anesthesiologist: Oziel ASA Score: ASA 3 Mallampati Score Class I : Soft palate, uvula, fauces, pillars visible Class II: Soft palate, uvula, fauces visible Class III: Soft palate, base of uvula visible Class IV: Only hard plate visible Mallampati Classification: Class II Surgeon: Trisha Diagnosis: Recurrent HS Surgical Procedure: Groin wound closure Anesthesia History: none Family History: no anesthesia problems Allergies: Coded Allergies: No Known Allergies (Unverified , 02/15/20) Medications: see eMAR Patient NPO?: Yes Past Medical History Cardiovascular: Reports: HTN; Denies: CAD, NV, valve dz, arrhythmia, other Pulmonary: Denies: asthma, COPD, MATTHEW, other Gastrointestinal/Genitourinary: Reports: GERD; Denies: CRI, ESRD, other Neurologic/Psychiatric: Denies: dementia, CVA, depression/anxiety, TIA, other Endocrine: Reports: DM - type 1; Denies: hypothyroidism, steroids, other HEENT: Denies: cataract (L), cataract (R), glaucoma, CHILKOOT (L), CHILKOOT (R), other Hematology/Immune: Denies: anemia, DVT, bleeding disorder, other Musculoskeletal/Integumentary: Reports: other - Recurrent HS; Denies: OA, RA, DJD, DDD, edema Other: other - overweight PMH Narrative: as above PSxH Narrative: see H&P Anesthesia Pre-op Phys. Exam Physician Exam Last Vital Signs Date Time Temp Pulse Resp B/P (MAP) Pulse Ox O2 Delivery O2 Flow Rate FiO2 02/20/20 08:00 98.8 63 20 139/84 (102) 95 02/19/20 21:00 Room Air 02/19/20 18:57 21 02/19/20 07:28 2.0 Constitutional: NAD Neurologic: CN 2-12 intact Cardiovascular: RRR, no M/R/G Respiratory: CTA Gastrointestinal: S/NT/ND Airway Exam Mallampati Score: Class II MO: full Neck: flexible ROM: full Teeth: intact Dentures: no upper, no lower Anesthesia Pre-op A/P Labs Hematology Test 02/20/20 05:25 White Blood Count 8.5 K/UL (4.8-10.8) Red Blood Count 4.50 M/UL (4.70-6.10) L Hemoglobin 14.5 G/DL (14.2-18.0) Hematocrit 44.2 % (42.0-52.0) Mean Corpuscular Volume 98 FL (80-99) Mean Corpuscular Hemoglobin 32.3 PG (27.0-31.0) H Mean Corpuscular Hemoglobin Concent 32.8 G/DL (32.0-36.0) Red Cell Distribution Width 11.8 % (11.6-14.8) Platelet Count 190 K/UL (150-450) Mean Platelet Volume 8.2 FL (6.5-10.1) Neutrophils (%) (Auto) 69.2 % (45.0-75.0) Lymphocytes (%) (Auto) 16.5 % (20.0-45.0) L Monocytes (%) (Auto) 10.6 % (1.0-10.0) H Eosinophils (%) (Auto) 2.9 % (0.0-3.0) Basophils (%) (Auto) 0.9 % (0.0-2.0) Chemistry Test 02/19/20 11:25 02/19/20 16:58 02/19/20 21:05 02/20/20 05:09 POC Whole Blood Glucose 174 MG/DL (74-106) H 145 MG/DL (74-106) H Pending 60 MG/DL (74-106) L Test 02/20/20 05:11 02/20/20 05:25 02/20/20 05:41 POC Whole Blood Glucose Pending 171 MG/DL (74-106) H Sodium Level 137 MMOL/L (136-145) Potassium Level 4.1 MMOL/L (3.5-5.1) Chloride Level 100 MMOL/L (98-107) Carbon Dioxide Level 34 MMOL/L (21-32) H Anion Gap 3 mmol/L (5-15) L Blood Urea Nitrogen 6 mg/dL (7-18) L Creatinine 1.0 MG/DL (0.55-1.30) Estimat Glomerular Filtration Rate > 60 mL/min (>60) Glucose Level 181 MG/DL (74-106) #H Calcium Level 8.7 MG/DL (8.5-10.1) Risk Assessment & Plan Assessment: ASA 3 Plan: GA with ETT Status Change Before Surgery: No Pre-Antibiotics Drug: Ancef 1gr Given Within 1 Hr of Incision: Yes Time Given: 10:20 Fan Flanagan MD Feb 20, 2020 09:45
--- NOTE | 2020-02-20 09:49 | NUR ---
NURSE NOTES: Patient off unit for surgery in stable condition.
[2020-02-20] MEDS ORDERED: Bacitracin 50000 Units Vial ONE (10:06)
[2020-02-20] MEDS ORDERED: NeoSporin Gu Irrig 1ml Amp IRRIG ONE (10:06)
[2020-02-20] MEDS ORDERED: Lidocaine 1% 10mg/ml/Epi 0.005mg/ml 30ml vial INJ ONE (10:06)
--- NOTE | 2020-02-20 10:27 | Pre-Procedure Note/Attestation ---
Pre-Procedure Note/Attestation Complete Prior to Procedure Planned Procedure: left Procedure Narrative: Left groin wound flap closure Attestation I attest that I discussed the nature of the procedure; its benefits; risks and complications; and alternatives (and the risks and benefits of such alternatives ), prior to the procedure, with the patient (or the patient's legal office machines sales representative). I attest that, if there was a reasonable possibility of needing a blood transfusion, the patient (or the patient's legal office machines sales representative) was given the [facility] standardized written summary, pursuant to the [place] Blood Safety Act ([place] Health and Safety Code # 1645, as amended). I attest that I re-evaluated the patient just prior to the surgery and that there has been no change in the patient's H&P, except as documented below: Ant Rico MD Feb 20, 2020 10:27
[2020-02-20] MEDS ORDERED: Surgicel 4in x 8in TOPIC ONE (10:40)
[2020-02-20] MEDS ORDERED: Morphine Sulfate 10mg/ml Inj ONE (10:56)
[2020-02-20] MEDS ORDERED: Sodium Chloride 10ml vial INJ ONE (10:57)
--- NOTE | 2020-02-20 11:04 | General Progress Note ---
Assessment/Plan Problem List: (1) Postoperative hypoxia ICD Codes: R09.02 - Hypoxemia; Z98.890 - Other specified postprocedural states SNOMED: 906025903, 685281070 (2) Wound drainage ICD Codes: T14.8XXA - Other injury of unspecified body region, initial encounter SNOMED: 87336433, 649029970 (3) Hidradenitis suppurativa ICD Codes: L73.2 - Hidradenitis suppurativa SNOMED: 59572658 (4) DM type 1 (diabetes mellitus, type 1) ICD Codes: E10.9 - Type 1 diabetes mellitus without complications SNOMED: 93706910 (5) HTN (hypertension) ICD Codes: I10 - Essential (primary) hypertension SNOMED: 26024659 Status: stable Assessment/Plan: 39 year old gentleman with a PMH of DM type 1, HTN and Hydradenitis of the inguinal area present after surgery with Dr. Rico. #Hydradenitis of inguinal region s/p surgical intervention 02/17 #Post op Hypoxia -improving #Wound Drainage - improving #Postop pain -Inpatient level of care -Ancef antibiotics for hidradenitis status post surgical intervention -Supplemental oxygen to keep saturations above 92% -Castaneda care and maintenance -CBC, CMP reviewed -Pain control with DEER FARMER pump -Bowel regimen -Heparin subcu 5000 units every 12 hours -Appreciate recommendations from surgeon -Wound closure today #Type 1 diabetes #Hypoglycemia - resolved -Resistant dose insulin sliding scale -Levemir 36 units at bedtime -Carb consistent diet -Hemoglobin A1c #Hypertension -Continue home hypertensives #Hypomagnesemia -replaced magnesium I spent 36 minutes on this admission with 50% of the time [id number] with the patient. Discussed with surgeon, RN and pharmacy. Subjective Date patient seen: Feb 20, 2020 Time patient seen: 11:01 Constitutional: Reports: no symptoms HEENT: Reports: no symptoms Cardiovascular: Reports: no symptoms Respiratory: Reports: no symptoms Gastrointestinal/Abdominal: Reports: no symptoms Genitourinary: Reports: no symptoms Neurologic/Psychiatric: Reports: no symptoms Endocrine: Reports: no symptoms Hematologic/Lymphatic: Reports: no symptoms Allergies: Coded Allergies: No Known Allergies (Unverified , 02/15/20) Subjective Patient feels good. No pain. No BM yet Objective Last 24 Hour Vital Signs Date Time Temp Pulse Resp B/P (MAP) Pulse Ox O2 Delivery O2 Flow Rate FiO2 02/20/20 09:00 Room Air 02/20/20 08:00 98.8 63 20 139/84 (102) 95 02/20/20 08:00 67 20 95 02/20/20 04:00 98.1 65 18 126/68 (87) 97 02/20/20 04:00 65 18 97 02/20/20 00:00 98.5 62 18 127/78 (94) 96 02/20/20 00:00 62 18 97 02/19/20 21:00 Room Air 02/19/20 20:00 98.9 69 18 135/70 (91) 95 02/19/20 20:00 69 18 95 02/19/20 18:57 97 Room Air 21 02/19/20 16:00 59 18 96 02/19/20 16:00 97.9 59 18 148/82 (104) 96 02/19/20 12:00 63 20 96 02/19/20 12:00 98.1 63 20 138/87 (104) 96 Intake and Output 02/19/20 02/20/20 19:00 07:00 Intake Total 3400 ml 255 ml Output Total 4800 ml 4000 ml Balance -1400 ml -3745 ml Intake Oral 3400 ml 200 ml IV Total 55 ml Output Urine Total 4800 ml 4000 ml Laboratory Tests 02/19/20 11:25: POC Whole Blood Glucose 174H 02/19/20 16:58: POC Whole Blood Glucose 145H 02/19/20 21:05: POC Whole Blood Glucose [Pending] 02/20/20 05:09: POC Whole Blood Glucose 60L 02/20/20 05:11: POC Whole Blood Glucose [Pending] 02/20/20 05:25: White Blood Count 8.5, Red Blood Count 4.50L, Hemoglobin 14.5, Hematocrit 44.2, Mean Corpuscular Volume 98, Mean Corpuscular Hemoglobin 32.3H, Mean Corpuscular Hemoglobin Concent 32.8, Red Cell Distribution Width 11.8, Platelet Count 190, Mean Platelet Volume 8.2, Neutrophils (%) (Auto) 69.2, Lymphocytes (%) (Auto) 16.5L, Monocytes (%) (Auto) 10.6H, Eosinophils (%) (Auto) 2.9, Basophils (%) ( Auto) 0.9, Sodium Level 137, Potassium Level 4.1, Chloride Level 100, Carbon Dioxide Level 34H, Anion Gap 3L, Blood Urea Nitrogen 6L, Creatinine 1.0, Estimat Glomerular Filtration Rate > 60, Glucose Level 181#H, Calcium Level 8.7 02/20/20 05:41: POC Whole Blood Glucose 171H Height (Feet): 5 Height (Inches): 9.00 Weight (Pounds): 210 General Appearance: no apparent distress, alert EENT: PERRL/EOMI, normal ENT inspection, TMs normal Neck: non-tender, normal alignment Cardiovascular: normal peripheral pulses, normal rate, regular rhythm, no gallop/murmur, no JVD Respiratory/Chest: chest wall non-tender, lungs clear, normal breath sounds, no respiratory distress, no accessory muscle use Abdomen: normal bowel sounds, non tender, soft, no organomegaly, no mass Genitourinary/Rectal: other - wounds draining Extremities: normal range of motion, non-tender Edema: no edema noted Arm (L), no edema noted Arm (R), no edema noted Leg (L), no edema noted Leg (R), no edema noted Pedal (L), no edema noted Pedal (R), no edema noted Generalized Neurologic: firer helper II-XII grossly normal, no motor/sensory deficits, alert, oriented x 3, responsive, normal mood/affect Skin: normal pigmentation, warm/dry, other - open surgical wound with drain. Benja Franco M.D. Feb 20, 2020 11:04
[2020-02-20] MEDS ORDERED: Neostigmine 1mg/ml 10ml Inj ONE (11:19)
[2020-02-20] MEDS ORDERED: Glycopyrrolate 0.2mg/ml 1ml Vial ONE (11:19)
[2020-02-20] MEDS ORDERED: Ketorolac 30mg Inj ONE (11:19)
--- NOTE | 2020-02-20 11:38 | Operative Note - PDOC ---
Operative Note Operative Note Procedure: Adjacent tissue transfer closure of groin wound left side Post-op Diagnosis: same as pre-op Surgeon: Trisha Screen Tacker: Job Anesthesia: general Specimen: yes Complications: none Condition: stable Estimated Blood Loss: minimal Drains: DAVID Implant(s) used?: No Ant Rico MD Feb 20, 2020 11:38
--- NOTE | 2020-02-20 12:02 | Immediate Post-Op Evaluation ---
Immediate Post-Op Evalulation Immediate Post-Op Evalulation Procedure: Revision and closure of groin wounds Date of Evaluation: Feb 20, 2020 Time of Evaluation: 12:01 IV Fluids: 600 Blood Products: none Estimated Blood Loss: 50 Urinary Output: 300 Blood Pressure Systolic: 116 Blood Pressure Diastolic: 58 Pulse Rate: 62 Respiratory Rate: 20 O2 Sat by Pulse Oximetry: 99 Temperature (Fahrenheit): 97.8 Pain Score (1-10): 1 Nausea: No Vomiting: No Complications none Patient Status: reacts, patent, extubated, none Hydration Status: adequate Fan Flanagan MD Feb 20, 2020 12:02
[2020-02-20] MEDS ORDERED: PCA HYDROmorphone 1mg/ml 30 ML IV PRN (12:30)
[2020-02-20] MEDS ORDERED: PCA Education Pamphlet MISC ONE (12:30)
[2020-02-20] MEDS ORDERED: Rate Change PCA 1 Each MISC PRN (12:30)
--- NOTE | 2020-02-20 13:15 | NUR ---
NURSE NOTES: PATIENT RETURNED FROM SURGERY IN BED. AOX4. O2 ON WITH ET CO2 IN PLACE AND ATTACHED. RR EVENLY SPACED. NO RESPIRATORY DISTRESS NOTED.BILATERAL GROIN AND SCROTAL SURGICAL SITE C/D/I WITH DAVID DRAIN AND ALDRIDGE CATHETER PATENT AND SECURED. DENIES PAIN. DILAUDID BLOWER FEEDER DYED RAW STOCK SETTINGS VERIFIED AGAINST MD ORDER. BUTTON IN PATIENT'S HAND. RETURN DEMONSTRATION SUCCESSFUL. SCDS ON. BEDSIDE REPORT RECEIVED. BED IN LOW AND LOCKED POSITION WITH BED ALARM ACTIVATED.
--- NOTE | 2020-02-20 14:17 | NUR ---
NURSE NOTES: PATIENT REMAINS STABLE AFTER SURGERY TODAY. ENCOURAGING C/D/B. ABLE TO PERFORM TASK W/O/ DIFFICULTY. RR EVENLY SPACED. SKIN W/D. NO RESPIRATORY DISTRESS NOTED. TOLERATING PO WELL. PAIN CONTROLLED WITH DILAUDID PCS. VSS.AFEBRILE. BED IN LOW AND LOCKED POSITION. BED ALARM ON. CALL LIGHT WITHIN REACH.
--- NOTE | 2020-02-20 15:34 | NUR ---
CASE MANAGEMENT:REVIEW 02/20/2020 SI:POST OPERATIVE HYPOXIA S/P EXCISION OF L&R THIGH AND SCROTAL HIDRADENITIS W/ WOUND CLOSURE; EXCISION OF LEFT SCROTAL FASCIOCUTANEOUS FLAP FOR STAGED CLOSURE RAZ DRAIN IN PLACE BILATERAL GROIN / BILATERAL UPPER THIGH AND SCROTAL HIDRADENITIS SUPPURATIVA 98.1 56 16 133/85 99% 3L NC IS:IN SURGERY FOR REVISION AND CLOSURE OF GROIN WOUND IV ANCEF TID IV D5 PROTOCOL ENGINEERING LEADER DILAUDID LEVEMIR SQ QHS \: 3E MED SURG UNIT DCP: HOME WHEN STABLE PLAN: CONT IV ABX CONTROL PAIN PLACE ON O2 D/T POST OPERATIVE HYPOXIA
--- NOTE | 2020-02-20 15:50 | NUR ---
*-* INSURANCE *-* UPDATED CLINICALS AND REVIEWS HAVE BEEN FAXED TO: RENAY DOMINGUEZ [facility] REF# [id number] FAX: [phone]
--- NOTE | 2020-02-20 16:30 | Operative Note - Dictated ---
DATE OF OPERATION: 02/20/2020 PREOPERATIVE DIAGNOSIS: Open left scrotal wound, status post excision of stage III hidradenitis suppurativa with a 10 x 15 cm defect. POSTOPERATIVE DIAGNOSIS: Open left scrotal wound, status post excision of stage III hidradenitis suppurativa with a 10 x 15 cm defect. PROCEDURE: 1. Adjacent tissue transfer closure of left scrotal and groin wound measuring 10 x 15 cm. CPT code 68847 for the first 30 square cm. 2. Adjacent tissue transfer closure of left scrotal groin wound measuring 10 x 15 cm. CPT code 08488 for the subsequent square centimeters that remained. SURGEON: Ant Rico MD. SUPERVISOR LATHING: Toribio Kaiser MD. ANESTHESIA: General. COMPLICATIONS: None. DRAINS: Included a size 15 DAVID drain. DISPOSITION: Stable to the recovery room. INDICATIONS FOR SURGERY: This is a 39-year-old male with a history of diabetes mellitus and longstanding history of hidradenitis suppurativa who is now postoperative day #2 from radical excision of disease involving his perineum and groin regions. His smaller wounds were closed at the initial operation. However, the scrotal wound was left open given the degree of infection present and the wound that resulted from the initial excision was 10 x 15 cm. At the initial operation, we elevated a scrotal fasciocutaneous flap as well as the medial thigh flap for staged closure of the wound and today after being on IV antibiotics for 48 hours and getting wound care, he is to undergo a definitive adjacent tissue transfer closure of the scrotal wound. DETAILS OF THE OPERATION: The patient was brought to the operating room and laid supine on the operating table. After induction of anesthesia, he was placed in lithotomy. The perineum was prepped and draped in a sterile and usual fashion. Once again, the scrotal wound measured 10 x 15 cm. The scrotal flap that had been previously elevated was further mobilized by releasing the fascial attachments to the tunic albuginea. Again this flap was based off of perforators of the pudendal artery. With the flap further mobilized over the scrotal fascia, we also released some of the medial thigh flap tissue as well to allow for adjacent tissue transfer closure of this 150 square centimeter wound. With the flaps fully mobilized, a DAVID drain was then placed into the wound bed. Surgicel was placed on top and following hemostasis and irrigation, the wound was closed with the opposition of the medial thigh flap and the scrotal flap with use of 0 Vicryl sutures and 2-0 Vicryl to close the deep layers of the flaps and a running 3-0 Prolene suture was used to close the skin that was further reinforced with multiple interrupted 2-0 Prolene sutures. All needle and sponge counts were correct at the end of the case. Ant Rico M.D. DR: CORY JOB#: [id number] CC:
[2020-02-20] MEDS: Docusate 100mg cap ORAL SCH (17:47)
--- NOTE | 2020-02-20 18:02 | NUR ---
NURSE NOTES: PATIENT GOT OOB WITH HOT SEALING MACHINE OPERATOR WITHOUT ADVISING RN. PATIENT AMBULATING IN HALLWAY. GAIT STEADY. EXPLAINED TO PATIENT AND HOT SEALING MACHINE OPERATOR. PLEASE CHECK WITH RN BEFORE GETTING SURGICAL PATIENT'S OOB. PLACED PATIENT IN BED. CHECKED ALL SURGICAL SITES; THUS FAR C/D/I. BED ALARM ACTIVATED. BED IN LOW,LOCKED POSITION WITH CALL LIGHT AND NARCOTICS DETECTIVE BUTTON IN HAND. VSS. AFEBRILE. DOING WELL. NO RESPIRATORY DISTRESS NOTED. PLACED CALL TO DR. BRUCE OF PREVIOUS EVENTS DESCRIBED. NO INTERVENTIONS AT THIS TIME.
--- NOTE | 2020-02-20 19:20 | NUR ---
NURSE NOTES: Received report from HARDIK Last. Pt is awake, lying semi-miranda's; comfortably resting. No signs of acute distress noted. Pt reports 3/10 pain in the lower back. AOx4; able to make needs known. Checked IV site, lines, and rates; patent and running. No erythema, bleeding, or infiltration noted. Groin dressing noted; dry and intact. DAVID drain under scrotum noted; patent and draining well. Castaneda bag noted; anchored, patent and draining well. Pt oriented to room. Bed at lowest position. Brakes on. Siderails up x3. Bed alarm on. Call light within reach. Will continue to monitor.
--- NOTE | 2020-02-20 19:26 | NUR ---
HAND-OFF: Report given to HERMAN JOVEL RN.
[2020-02-20] MEDS: Levemir Flexpen SUBQ SCH (20:59)
[2020-02-21] VITALS: BP 136/80
[2020-02-21 04:00] VITALS: BP 138/96
[2020-02-21] MEDS: ceFAZolin sod 1 GM in D5W 55 ML IVPB SCH ×3 (05:46→21:42)
[2020-02-21] MEDS: NovoLOG Insulin Flexpen SUBQ SCH ×4 (05:59→20:49)
[2020-02-21 06:18] LABS: BASOPHILS % (AUTO) 0.6 % (0.0-2.0); EOSINOPHILS % (AUTO) 1.4 % (0.0-3.0); HEMATOCRIT 45.2 % (42.0-52.0); LYMPHOCYTES % (AUTO) 10.3 % (20.0-45.0); MEAN CORPUSCULAR VOLUME 97 FL (80-99); MONOCYTES % (AUTO) 9.1 % (1.0-10.0); NEUTROPHILS % (AUTO) 78.6 % (45.0-75.0); PLATELET COUNT 211 K/UL (150-450); RED BLOOD COUNT 4.67 M/UL (4.70-6.10); RED CELL DISTRIBUTION WIDTH 11.6 % (11.6-14.8); WHITE BLOOD COUNT 10.9 K/UL (4.8-10.8)
[2020-02-21 06:41] LABS: ALANINE AMINOTRANSFERASE 22 U/L (12-78); ALBUMIN 3.1 G/DL (3.4-5.0); ALBUMIN/GLOBULIN RATIO 0.7 (1.0-2.7); ALKALINE PHOSPHATASE 70 U/L (46-116); ANION GAP 4 mmol/L (5-15); ASPARTATE AMINO TRANSFERASE 21 U/L (15-37); BILIRUBIN,TOTAL 0.5 MG/DL (0.2-1.0); BLOOD UREA NITROGEN 9 mg/dL (7-18); CALCIUM 9.4 MG/DL (8.5-10.1); CARBON DIOXIDE 32 MMOL/L (21-32); CHLORIDE 97 MMOL/L (98-107); POTASSIUM 4.4 MMOL/L (3.5-5.1); SODIUM 133 MMOL/L (136-145)
[2020-02-21] MEDS: PCA shift volume MISC SCH ×2 (07:09→19:00)
--- NOTE | 2020-02-21 07:21 | NUR ---
HAND-OFF: Report given to HARDIK Lino. Pt is sleeping and in stable condition. Plan of care endorsed.
--- NOTE | 2020-02-21 07:25 | NUR ---
NURSE NOTES: Handoff received from Breanna DYE. Patient is awake and alert, no signs of distress noted. No complaints of pain at this time. Right wrist IV is patent and asymptomatic. Groin DAVID drain noted. NAILHEAD PUNCHER settings verified against order. Bed is low and locked, side rails up x2, call light is within reach.
[2020-02-21 08:00] VITALS: BP 133/82
[2020-02-21] MEDS: Docusate 100mg cap ORAL SCH ×2 (08:19→18:35)
[2020-02-21] MEDS: Heparin 5000 units/ml inj SUBQ SCH ×2 (08:47→20:49)
[2020-02-21] MEDS ORDERED: HYDROcodone/Acetamin 5/325 tab ORAL PRN (10:34)
--- NOTE | 2020-02-21 10:42 | General Progress Note ---
Assessment/Plan Problem List: (1) Postoperative hypoxia ICD Codes: R09.02 - Hypoxemia; Z98.890 - Other specified postprocedural states SNOMED: 652162986, 941591426 (2) Wound drainage ICD Codes: T14.8XXA - Other injury of unspecified body region, initial encounter SNOMED: 63758483, 123312036 (3) Hidradenitis suppurativa ICD Codes: L73.2 - Hidradenitis suppurativa SNOMED: 40034083 (4) DM type 1 (diabetes mellitus, type 1) ICD Codes: E10.9 - Type 1 diabetes mellitus without complications SNOMED: 40850844 (5) HTN (hypertension) ICD Codes: I10 - Essential (primary) hypertension SNOMED: 83641326 (6) Hyponatremia ICD Codes: E87.1 - Hypo-osmolality and hyponatremia SNOMED: 35671197 Status: stable Assessment/Plan: 39 year old gentleman with a PMH of DM type 1, HTN and Hydradenitis of the inguinal area present after surgery with Dr. Rico. #Hydradenitis of inguinal region s/p surgical intervention 02/17, wound closure 02/19 #Post op Hypoxia -resolved #Wound Drainage - improving #Postop pain -Inpatient level of care -Ancef antibiotics for hidradenitis status post surgical intervention -Supplemental oxygen to keep saturations above 92% -Isidro care and maintenance - DC isidro -CBC, CMP reviewed -Pain control with TRAFFIC INVESTIGATOR pump, encouraged to take PO pain meds -Bowel regiment -Heparin subcu 5000 units every 12 hours -Appreciate recommendations from surgeon -Wound closure 02/19 - DAVID drain serosanguineous #Type 1 diabetes #Hypoglycemia - resolved -Resistant dose insulin sliding scale -Levemir 36 units at bedtime -Carb consistent diet -Hemoglobin A1c #Hypertension -Continue home hypertensives #Hypomagnesemia - resolved -replaced magnesium #Hypochloremic Hyponatremia -Was given NS -Encouraged to increase PO intake I spent 36 minutes on this admission with 50% of the time [id number] with the patient. Discussed with surgeon, RN and pharmacy. Subjective Date patient seen: Feb 21, 2020 Time patient seen: 10:35 ROS Limited/Unobtainable: No Constitutional: Reports: no symptoms HEENT: Reports: no symptoms Cardiovascular: Reports: no symptoms Respiratory: Reports: no symptoms Gastrointestinal/Abdominal: Reports: no symptoms Genitourinary: Reports: no symptoms Neurologic/Psychiatric: Reports: no symptoms Endocrine: Reports: no symptoms Hematologic/Lymphatic: Reports: no symptoms Allergies: Coded Allergies: No Known Allergies (Unverified , 02/15/20) Subjective Patient feels good. No pain. No BM yet. Wants to go home. Objective Last 24 Hour Vital Signs Date Time Temp Pulse Resp B/P (MAP) Pulse Ox O2 Delivery O2 Flow Rate FiO2 02/21/20 08:00 99.3 69 19 133/82 (99) 100 02/21/20 04:00 99.6 70 18 138/96 (110) 93 02/21/20 00:00 68 18 97 02/20/20 23:58 99.1 68 18 136/80 (98) 97 02/20/20 21:50 98 Nasal Cannula 2.0 28 02/20/20 21:00 98.3 59 18 127/81 (96) 95 02/20/20 21:00 Room Air 02/20/20 20:00 59 18 95 02/20/20 16:00 98.1 59 20 121/75 (90) 99 02/20/20 16:00 59 20 99 02/20/20 15:15 98.6 66 17 121/70 (87) 98 02/20/20 14:45 98.6 64 20 122/75 (91) 99 02/20/20 14:15 98.1 77 21 124/81 (95) 99 02/20/20 13:45 98.4 79 21 135/79 (97) 99 02/20/20 13:30 98.7 59 19 120/78 (92) 99 02/20/20 13:18 15 02/20/20 13:18 98.8 02/20/20 13:15 56 16 99 02/20/20 13:15 99.1 56 16 133/85 (101) 99 02/20/20 13:05 98.8 63 15 126/82 100 Nasal Cannula 3 02/20/20 13:03 17 02/20/20 12:50 64 17 125/84 100 Nasal Cannula 3 02/20/20 12:48 13 02/20/20 12:35 56 13 127/79 100 Nasal Cannula 3 02/20/20 12:20 60 11 124/75 100 Simple Mask 6 02/20/20 12:10 61 10 127/81 100 Simple Mask 6 02/20/20 12:02 62 20 99 02/20/20 12:00 62 12 127/80 100 Simple Mask 6 02/20/20 12:00 62 12 100 02/20/20 11:55 64 14 112/76 100 Simple Mask 6 02/20/20 11:49 99.3 57 12 118/79 100 Simple Mask 6 Intake and Output 02/20/20 02/21/20 19:00 07:00 Intake Total 2820 ml 480 ml Output Total 1750 ml 4500 ml Balance 1070 ml -4020 ml Intake Oral 2020 ml 480 ml IV Total 800 ml Output Urine Total 1700 ml 4500 ml Drainage Total 50 ml # Voids 3 Laboratory Tests 02/20/20 12:17: POC Whole Blood Glucose [Pending] 02/20/20 16:33: POC Whole Blood Glucose 282H 02/20/20 20:55: POC Whole Blood Glucose 262H 02/21/20 05:40: White Blood Count 10.9H, Red Blood Count 4.67L, Hemoglobin 15.0, Hematocrit 45.2 , Mean Corpuscular Volume 97, Mean Corpuscular Hemoglobin 32.2H, Mean Corpuscular Hemoglobin Concent 33.3, Red Cell Distribution Width 11.6, Platelet Count 211, Mean Platelet Volume 7.9, Neutrophils (%) (Auto) 78.6H, Lymphocytes ( %) (Auto) 10.3L, Monocytes (%) (Auto) 9.1, Eosinophils (%) (Auto) 1.4, Basophils (%) (Auto) 0.6, Sodium Level 133L, Potassium Level 4.4, Chloride Level 97L, Carbon Dioxide Level 32, Anion Gap 4L, Blood Urea Nitrogen 9, Creatinine 1.0, Estimat Glomerular Filtration Rate > 60, Glucose Level 120H, Calcium Level 9.4, Total Bilirubin 0.5, Aspartate Amino Transf (AST/SGOT) 21, Alanine Aminotransferase (ALT/SGPT) 22, Alkaline Phosphatase 70, Total Protein 7.4, Albumin 3.1L, Globulin 4.3, Albumin/Globulin Ratio 0.7L 02/21/20 05:48: POC Whole Blood Glucose 133H Height (Feet): 5 Height (Inches): 9.00 Weight (Pounds): 210 General Appearance: no apparent distress, alert Neck: normal alignment, supple, normal inspection Cardiovascular: normal peripheral pulses, normal rate, regular rhythm, no gallop/murmur, no JVD Respiratory/Chest: chest wall non-tender, lungs clear, normal breath sounds, no respiratory distress, no accessory muscle use Abdomen: non tender, soft, no organomegaly, no mass, hypoactive bowel sounds Extremities: normal range of motion, other - discomfort at wound sites Edema: no edema noted Arm (L), no edema noted Arm (R), no edema noted Leg (L), no edema noted Leg (R), no edema noted Pedal (L), no edema noted Pedal (R), no edema noted Generalized Neurologic: rolling mill operator II-XII grossly normal, alert, oriented x 3, responsive, normal mood/affect Benja Franco M.D. Feb 21, 2020 10:42
--- NOTE | 2020-02-21 10:52 | 48 Hour Post Anesthesia Eval ---
Post Anesthesia Evaluation Procedure: Revision and closure of groin wounds Date of Evaluation: Feb 21, 2020 Time of Evaluation: 10:51 Blood Pressure Systolic: 132 0: 74 Pulse Rate: 68 Respiratory Rate: 20 Temperature (Fahrenheit): 97.8 O2 Sat by Pulse Oximetry: 99 Airway: patent Nausea: No Vomiting: No Pain Intensity: 3 Hydration Status: adequate Cardiopulmonary Status: stable Mental Status/LOC: patient returned to baseline Follow-up Care/Observations: n/a Post-Anesthesia Complications: none Follow-up care needed: N/A Fan Flanagan MD Feb 21, 2020 10:52
--- NOTE | 2020-02-21 10:57 | NUR ---
Discharge planning: patient referred to: [facility] T: [phone] F: [phone] [facility] T: [phone] F: [phone] CM to f/U
[2020-02-21 12:00] VITALS: BP 138/89
--- NOTE | 2020-02-21 13:44 | NUR ---
P.T Note: P.T evaluation completed and tx initiated. Please refer to P.T evaluation for current functional status.
[2020-02-21] MEDS: DiphenhydrAMINE 50mg/ml Inj IVP PRN ×2 (14:00→20:45)
[2020-02-21 16:00] VITALS: BP 145/75
--- NOTE | 2020-02-21 16:18 | NUR ---
Discharge planning patient referred to [facility] F: [phone] T:[phone] CM to f/u
--- NOTE | 2020-02-21 16:57 | NUR ---
CASE MANAGEMENT:REVIEW 02/21/2020 SI:S/P REVISION AND CLOSURE OF GROIN WOUND POST OPERATIVE HYPOXIA S/P EXCISION OF L&R THIGH AND SCROTAL HIDRADENITIS W/ WOUND CLOSURE; EXCISION OF LEFT SCROTAL FASCIOCUTANEOUS FLAP FOR STAGED CLOSURE RAZ DRAIN IN PLACE BILATERAL GROIN / BILATERAL UPPER THIGH AND SCROTAL HIDRADENITIS SUPPURATIVA 97.5 83 20 138/89 100% 2L NC WBC 10.9 BG 237 ALB 3.1 IS:IV ANCEF TID IV D5 PROTOCOL ANNUAL GIVING DIRECTOR DILAUDID LEVEMIR SQ QHS NOVOLOG SQ AC+HC \: 3E MED SURG UNIT DCP: HOME WHEN STABLE PLAN: Anticipated DC in am F/U call to be made to potential HH T: [phone]
--- NOTE | 2020-02-21 17:10 | NUR ---
*-* INSURANCE *-* UPDATED CLINICALS AND REVIEWS HAVE BEEN FAXED TO: RENAY DOMINGUEZ [facility] REF# [id number] FAX: [phone]
--- NOTE | 2020-02-21 19:25 | NUR ---
NURSE NOTES: Received report from kong rush. patient is on bed, awake and verbally responsive. on room air. no sob. with iv line on the right wrist. noted with DISTRIBUTION CENTER ADMINISTRATOR dilaudid. with urinal on the bedside. ambulates with steady gate. with intact dr dressing on the groin. noted with cam drain. reiterated to call and ask for assistance. call light and light button within easy reach. will continue plan of care
--- NOTE | 2020-02-21 19:30 | NUR ---
NURSE HAND-OFF: Important Events on Shift:[] Patient Status: stable Diet: CCHO medium Pending Orders: discharge 8/7 AM Pending Results/Labs: Pending MD notification: Latest Vital Signs: Temperature 98.4 , Pulse 62 , B/P 145 /75 , Respiratory Rate 19 , O2 SAT 100 , Room Air, O2 Flow Rate 2.0 . Vital Sign Comment: Latest Cummings Fall Score: 35 Fall Risk: Medium Risk Safety Measures: Call light Within Reach, Bed Alarm Zone 1, Side Rails Side Rails x2, Bed position Low and Locked. Fall Precautions: Door Sign Patient Fall Education Report given to Asha DYE.
[2020-02-21 20:00] VITALS: BP 137/89
[2020-02-21] MEDS: Levemir Flexpen SUBQ SCH (20:49)
[2020-02-22] VITALS: BP 118/73
[2020-02-22 04:00] VITALS: BP 122/87
--- NOTE | 2020-02-22 06:00 | NUR ---
NURSE NOTES: acucheck done with a result of 56. asymptomatic. treat per protocol; orange juice given. CN made aware
[2020-02-22] MEDS: ceFAZolin sod 1 GM in D5W 55 ML IVPB SCH (06:06)
[2020-02-22] MEDS: NovoLOG Insulin Flexpen SUBQ SCH (06:08)
--- NOTE | 2020-02-22 06:30 | NUR ---
NURSE NOTES: re-checked blood sugar with a result of 107. charge nurse made aware.
[2020-02-22 06:36] LABS: BASOPHILS % (AUTO) 1.1 % (0.0-2.0); EOSINOPHILS % (AUTO) 4.3 % (0.0-3.0); HEMATOCRIT 46.7 % (42.0-52.0); HEMOGLOBIN 15.2 G/DL (14.2-18.0); LYMPHOCYTES % (AUTO) 22.5 % (20.0-45.0); MEAN CORPUSCULAR VOLUME 99 FL (80-99); MONOCYTES % (AUTO) 15.9 % (1.0-10.0); NEUTROPHILS % (AUTO) 56.2 % (45.0-75.0); PLATELET COUNT 226 K/UL (150-450); RED BLOOD COUNT 4.72 M/UL (4.70-6.10); RED CELL DISTRIBUTION WIDTH 12.4 % (11.6-14.8); WHITE BLOOD COUNT 7.4 K/UL (4.8-10.8)
--- NOTE | 2020-02-22 06:40 | NUR ---
NURSE HAND-OFF: Important Events on Shift:hypoglycemia at 0600 am: treat per protocol. latest BS: 107 Patient Status:stable Diet:CCHO MEDIUM Pending Orders:none Pending Results/Labs:pending labs Pending MD notification:none Latest Vital Signs: Temperature 98.0 , Pulse 60 , B/P 122 /87 , Respiratory Rate 19 , O2 SAT 95 , Room Air, O2 Flow Rate 2.0 . Vital Sign Comment: Latest Cummings Fall Score: 35 Fall Risk: Medium Risk Safety Measures: Call light Within Reach, Bed Alarm Zone 1, Side Rails Side Rails x2, Bed position Low and Locked. Fall Precautions: Door Sign Patient Fall Education Addendum: 02/22/20 at 0728 by Alice Patel RN report given to kong gonsalez
[2020-02-22 06:42] LABS: ALANINE AMINOTRANSFERASE 20 U/L (12-78); ALBUMIN/GLOBULIN RATIO 0.6 (1.0-2.7); ALKALINE PHOSPHATASE 66 U/L (46-116); ANION GAP 4 mmol/L (5-15); ASPARTATE AMINO TRANSFERASE 21 U/L (15-37); BILIRUBIN,TOTAL 0.4 MG/DL (0.2-1.0); BLOOD UREA NITROGEN 11 mg/dL (7-18); CALCIUM 9.4 MG/DL (8.5-10.1); CARBON DIOXIDE 32 MMOL/L (21-32); CHLORIDE 101 MMOL/L (98-107); CREATININE 1.1 MG/DL (0.55-1.30); POTASSIUM 3.8 MMOL/L (3.5-5.1); SODIUM 137 MMOL/L (136-145)
[2020-02-22] MEDS: PCA shift volume MISC SCH (07:28)
[2020-02-22 08:00] VITALS: BP 140/96
[2020-02-22] MEDS: Docusate 100mg cap ORAL SCH (08:15)
[2020-02-22] MEDS: Heparin 5000 units/ml inj SUBQ SCH (08:16)
[2020-02-22] MEDS ORDERED: NORCO 5-325 TA1 EAC1 ORAL (08:42)
[2020-02-22] MEDS ORDERED: CLINDAMYCIN HC300 MG ORAL (08:42)
[2020-02-22] MEDS ORDERED: DULCOLAX5 MG PO (08:45)
--- NOTE | 2020-02-22 08:48 | Discharge Instructions ---
Discharge Instructions Discharge Instructions Call MD/Return to Hospital if: gage of the wound, fever, fatigue Services at Discharge: home health services Diet: diabetic calorie control Activity: light activity For Surgical Patients Dressing Care: may change May shower: Yes Contact your physician for: bleeding, pain, tenderness, redness, swelling, yellowish discharge in the op. site Benja Franco M.D. Feb 22, 2020 08:48
[2020-02-22] MEDS ORDERED: Ketorolac 30mg Inj IV SCH (09:45)
--- NOTE | 2020-02-22 10:02 | NUR ---
Discharge planning:Wound care tx plan Wound care plan: 1. Daily dry dressing changes for each incision for 7days ~If any area "opens" place wet to dry dressing twice daily
--- NOTE | 2020-02-22 10:25 | Discharge Summary ---
Discharge Summary Hospital Course Date of Admission Feb 18, 2020 at 12:29 Date of Discharge 02/22/2020 Admitting Diagnosis Hydradeneits, post op wound drainage and hypoxia HPI Gonzalez Cool is a 39 year old male who was admitted on Feb 18, 2020 at 12:[address] Rico Plastic surgery Procedures 1. Excision of left upper thigh hidradenitis suppurativa with wound closure. 2. Excision of right upper thigh hidradenitis suppurativa with wound closure. 3. Excision of right scrotal hidradenitis suppurativa with wound closure. 4. Extended excision of left scrotal and upper thigh hidradenitis stage III resulting in a defect of 10 x 15 cm. 5. Elevation of a scrotal fasciocutaneous flap for staged closure of left scrotal wound that measured 10 x 15 cm. Hospital Course 39 year old gentleman with a PMH of DM type 1, HTN and Hydradenitis of the inguinal area present after surgery with Dr. Rico.S urgical intervention was 02/17, with wound closure 02/19. Patient did well during his hospital stay. He received Ancef antibiotics witch pain control. He will be discharged with Clindamycin for 7 days. He #Hydradenitis of inguinal region s/p #Post op Hypoxia -resolved #Wound Drainage - improving #Postop pain -Inpatient level of care - for hidradenitis status post surgical intervention -Supplemental oxygen to keep saturations above 92% -Isidro care and maintenance - DC isidro -CBC, CMP reviewed -Pain control with E COMMERCE DIRECTOR pump, encouraged to take PO pain meds -Bowel regiment -Heparin subcu 5000 units every 12 hours -Appreciate recommendations from surgeon -Wound closure 02/19 - DAVID drain serosanguineous #Type 1 diabetes #Hypoglycemia - resolved -Resistant dose insulin sliding scale -Levemir 36 units at bedtime -Carb consistent diet -Hemoglobin A1c #Hypertension -Continue home hypertensives #Hypomagnesemia - resolved -replaced magnesium #Hypochloremic Hyponatremia -Was given NS -Encouraged to increase PO intake I spent 36 minutes on this admission with 50% of the time [id number] with the patient. Discussed with surgeon, RN and pharmacy. Discharge Medications New Medications: Bisacodyl (Dulcolax) 5 Mg Tablet. 5 MG PO DAILY, #14 TAB Clindamycin Hcl (Clindamycin Hcl) 300 Mg Capsule 300 MG ORAL THREE TIMES A DAY for 7 Days, #21 CAP Hydrocodone Bit/Acetaminophen 5-325* ([place] 5-325 Tablet*) 1 Each Tablet 1 TAB ORAL Q4H PRN, #12 TAB 0 Refills Continued Medications: Amlodipine Besylate* (Amlodipine Besylate*) 10 Mg Tablet 10 MG ORAL DAILY for as prescribed, TAB (This prescription has been renewed) Benazepril Hcl* (Benazepril Hcl*) 40 Mg Tablet 40 MG ORAL DAILY for HTN, TAB (This prescription has been renewed) Citalopram Hydrobromide* (Citalopram Hbr*) 10 Mg Tablet 10 MG ORAL DAILY for as prescribed, TAB (This prescription has been renewed) Insulin Aspart (Novolog) 100 Unit/1 Ml Cartridge 0 SQ AC for as prescribed I UNIT PER 6GM CARBOHYDRATE Insulin Glargine (Lantus) 100 Unit/1 Ml Insuln.pen 36 SUBQ BEDTIME for as prescribed, #1 EA 0 Refills (This prescription has been renewed) Discharge Discharge Vital Signs Last Vital Signs Date Time Temp Pulse Resp B/P (MAP) Pulse Ox O2 Delivery O2 Flow Rate FiO2 02/22/20 09:00 Room Air 02/22/20 08:00 98.3 77 18 140/96 (111) 98 02/21/20 19:35 21 02/21/20 09:45 2.0 Discharge Disposition Patient was discharged to home with home health wound care Discharge Diagnoses: (1) Hidradenitis suppurativa (2) Postoperative hypoxia (3) Wound drainage (4) DM type 1 (diabetes mellitus, type 1) (5) HTN (hypertension) (6) Hyponatremia Discharge Instructions Discharge Instructions Call MD/Return to Hospital if: driange of the wound, fever, fatigue Services Upon Discharge: home health services Activity: light activity For Surgical Patients Dressing Care: may change May shower: Yes Contact your physician for: bleeding, pain, tenderness, redness, swelling, yellowish discharge in the op. site Benja Franco M.D. Feb 22, 2020 10:25
--- NOTE | 2020-02-22 10:54 | NUR ---
NURSE NOTES: Patient was discharged home in stable condition at 1040. All discharge paper works signed, no missing belonging noted from inventory. Patient was provided prescription medications from Dr. Franco, home medications and extra wound care supplies. Denies any pain or discomfort upon discharge, IV line and ID band removed. Patient was accompanied by mother, Maria C Cool.
== END 2020-02-22 11:05 | disposition home health service (06) | DRG 577 ==
LOC: SUR 08:01 → 3E 12:29
PROC: 0J8 Subcutaneous Tissue and Fascia, Division (ICD-10-PCS; principal; 2020-02-18 10:00)
PROC: 0JBL0ZZ Excision of Right Upper Leg Subcutaneous Tissue and Fascia, Open Approach (ICD-10-PCS; principal; 2020-02-18 10:00)
PROC: 0VB50ZZ Excision of Scrotum, Open Approach (ICD-10-PCS; principal; 2020-02-18 10:00)
PROC: 0JBM0ZZ Excision of Left Upper Leg Subcutaneous Tissue and Fascia, Open Approach (ICD-10-PCS; principal; 2020-02-18 10:00)
PROC: 0JXB0ZC Transfer Perineum Subcutaneous Tissue and Fascia with Skin, Subcutaneous Tissue and Fascia, Open Approach (ICD-10-PCS; 2020-02-20)
PROC: 0JXC0ZC Transfer Pelvic Region Subcutaneous Tissue and Fascia with Skin, Subcutaneous Tissue and Fascia, Open Approach (ICD-10-PCS; 2020-02-20)
DX: L73.2 Hidradenitis suppurativa (principal); E87.1 Hypo-osmolality and hyponatremia; R09.02 Hypoxemia; E83.42 Hypomagnesemia; E10.649 Type 1 diabetes mellitus with hypoglycemia without coma; I10 Essential (primary) hypertension; G89.18 Other acute postprocedural pain
CPT/HCPCS: 36415; 80048; 80053; 82962; 83036; 83735; 85025; 94003; 94150; J1815; J2180; J2250; J2405; J2710; J7030; S5561; U0002